=== PATIENT | male | born 1985 | race American Indian/Alaskan Native ===

== ENCOUNTER 2016-12-25 17:56 | Emergency (ER) | payer OTHER ==
[2016-12-25 18:22] VITALS: O2SAT 99
--- NOTE | 2016-12-25 19:46 | C.PDOC ---
History Of Present Illness The patient presents today with complaints of bilateral axillary swelling which he noticed after switching his deodorant. Patient states the swelling has been worse over the past couple days and is associated with a low grade fever. He denies any chills and offers no additional medical complaints. Time Seen by Provider: 12/25/16 19:46 Chief Complaint (Nursing): Abnormal Skin Integrity History Per: Patient History/Exam Limitations: no limitations Onset/Duration Of Symptoms: Days Current Symptoms Are (Timing): Still Present Quality Of Symptoms: Swollen Severity: Moderate Pain Scale Rating Of: 3 Recent travel outside of the [place]: No Additional History Per: Patient Past Medical History Reviewed: Historical Data, Nursing Documentation, Vital Signs Vital Signs: Last Vital Signs Temp 98 F 12/25/16 21:44 Pulse 65 12/25/16 21:44 Resp 18 12/25/16 21:44 BP 116/79 12/25/16 21:44 Pulse Ox 99 12/25/16 21:44 - Medical History PMH: No Chronic Diseases Surgical History: No Surg Hx Family History: States: No Known Family Hx - Social History Hx Alcohol Use: Yes Hx Substance Use: Yes - Immunization History Hx Tetanus Toxoid Vaccination: Yes Hx Influenza Vaccination: No Hx Pneumococcal Vaccination: No Review Of Systems Constitutional: Positive for: Fever. Negative for: Chills Musculoskeletal: Positive for: Other (swelling to bilateral axilla) Physical Exam - Physical Exam Appears: Non-toxic, No Acute Distress Skin: Warm, Dry Head: Normacephalic Eye(s): bilateral: Normal Inspection Neck: Supple Chest: Symmetrical Cardiovascular: Rhythm Regular Respiratory: No Decreased Breath Sounds, No Accessory Muscle Use Extremity: Other (3 2x4 cm areas of induration and tenderness, purulent drainage noted to right axilla; 2 small 1x3 and 1x2 cm areas of induration noted in left axilla.) Neurological/Psych: Oriented x3, Normal Speech, Normal Cognition ED Course And Treatment - Laboratory Results Result Diagrams: 12/25/16 20:18 12/25/16 20:18 O2 Sat by Pulse Oximetry: 99 (RA) Pulse Ox Interpretation: Normal Progress Note: Labs, IV Ancef and IV fluids ordered Reevaluation Time: 22:15 Reassessment Condition: Improved Medical Decision Making Medical Decision Making: Upon provider reevaluation patient is feeling better, is medically stable, and requires no further treatment in the ED at this time. Patient will be discharged home with Rx for keflex and bactrim . Counseling was provided and all questions were answered regarding diagnosis and need for follow up with the referred clinic. There is agreement to discharge plan. Return if symptoms persist or worsen. Disposition Counseled Patient/Family Regarding: Studies Performed, Diagnosis, Need For Followup, Rx Given - Disposition Referrals: [facility] at [facility] [Outside] [facility] [Outside] Disposition: HOME/ ROUTINE Disposition Time: 19:46 Condition: FAIR Prescriptions: Cephalexin [Keflex] 500 mg PO QID #28 capsule Naproxen [Naprosyn] 1 tab PO BID PRN #15 tab PRN Reason: Pain Sulfamethoxazole/Trimethoprim [Bactrim DS 800 mg-160 mg] 1 tab PO BID #14 tab Instructions: Cellulitis (DC), Abscess (GEN) Forms: [employer] (Faroese) - Clinical Impression Clinical Impression: Hidradenitis axillaris - Lucretiaibe Statement The provider has reviewed the documentation as recorded by the Leonidas Frakns Provider Attestation: All medical record entries made by the Leonidas were at my direction and personally dictated by me. I have reviewed the chart and agree that the record accurately reflects my personal performance of the history, physical exam, medical decision making, and the department course for this patient. I have also personally directed, reviewed, and agree with the discharge instructions and disposition.
[2016-12-25] MEDS ORDERED: Sodium Chloride 0.9% 1,000 ML IV ONE (19:53)
[2016-12-25] MEDS ORDERED: ceFAZolin IV 2 gm in Dextrose 2 GM/100 ML BAG IVPB STA (20:09)
[2016-12-25] MEDS ORDERED: Sodium Chloride 0.9% 1,000 ML ONE (20:21)
[2016-12-25] MEDS ORDERED: ceFAZolin 1 gm FROZEN Premix 2 GM/100 ML ML IVPB ONE (20:21)
[2016-12-25 20:22] LABS: BASO # 0.1 K/uL (0.0-0.2); BASO % 0.5 % (0.0-2.0); EOS # 0.1 K/uL (0.0-0.7); EOS % 0.7 % (0.0-4.0); HEMATOCRIT 39.2 % (35.0-51.0); LYMPH # 1.7 K/uL (1.0-4.3); LYMPH % 13.9 % (20.0-40.0); MEAN CELL VOLUME 87.7 fL (80.0-94.0); MEAN CORPUSCULAR HEMOGLOBIN 30.1 pg (27.0-31.0); MEAN CORPUSCULAR HGB CONC 34.4 g/dL (33.0-37.0); MEAN PLATELET VOLUME 8.2 fL (7.2-11.7); MONO # 1.3 K/uL (0.0-0.8); MONO % 10.1 % (0.0-10.0); RED CELL DISTRIBUTION WIDTH 13.3 % (11.5-14.5); WHITE BLOOD COUNT 12.4 K/uL (4.8-10.8)
[2016-12-25 20:29] LABS: CHLORIDE 105 mmol/L (98-107)
[2016-12-25 20:30] LABS: POTASSIUM 3.6 mmol/L (3.6-5.2); SODIUM 139 mmol/L (132-148)
[2016-12-25 20:33] LABS: BLOOD UREA NITROGEN 11 mg/dL (9-20); CALCIUM 7.9 mg/dl (8.6-10.4); CARBON DIOXIDE 22 mmol/L (22-30); GFR AFRICAN-AMERICAN > 60; GLUCOSE,RANDOM 96 mg/dL (75-110)
[2016-12-25 20:43] LABS: VENOUS BLOOD GAS BASE EXCESS -0.4 mmol/L (0.0-2.0); VENOUS BLOOD GAS PCO2 42 mmHg (40-60); VENOUS BLOOD PH 7.38 (7.32-7.43)
[2016-12-25 21:44] VITALS: RESP 18; TEMP 98
[2016-12-25 22:28] VITALS: BP 136/72; PULSE 61
== END 2016-12-25 22:27 | disposition home or self-care (01) ==
LOC: C.ER 17:56
DX: L73.2 Hidradenitis suppurativa (principal)
CPT/HCPCS: 80048; 82803; 85025; 87040; 96365; 96375; 99284; J0690; J1885; J7040

== ENCOUNTER 2017-05-12 18:17 | Emergency (ER) | payer OTHER ==
[2017-05-12 18:42] VITALS: RESP 20
[2017-05-12] MEDS ORDERED: Tmp-Smz 800 mg-160 mg DS Tab PO STA (18:53)
[2017-05-12] MEDS ORDERED: Lidocaine 1% Inj (20ml) INFIL STA (18:53)
--- NOTE | 2017-05-12 18:57 | C.PDOC ---
History Of Present Illness 31 year old male presents to the ER for evaluation of a painful mass to the left axilla which has been present for 1 week. Patient states he has been applying warm compresses without relief and taking Motrin. Patient denies having fever, drainage, and other complaints.Of note, patient states that he has a history of prior abscess in the past. Time Seen by Provider: 05/12/17 18:46 Chief Complaint (Nursing): Abnormal Skin Integrity History Per: Patient History/Exam Limitations: no limitations Onset/Duration Of Symptoms: Days Current Symptoms Are (Timing): Still Present Severity: Moderate Past Medical History Reviewed: Historical Data, Nursing Documentation, Vital Signs Vital Signs: Last Vital Signs Temp 98.9 F 05/12/17 19:50 Pulse 89 05/12/17 19:50 Resp 20 05/12/17 19:50 BP 110/70 05/12/17 19:50 Pulse Ox 99 05/12/17 21:16 - Medical History PMH: No Chronic Diseases Other Surgeries: ortho Family History: States: No Known Family Hx - Social History Hx Alcohol Use: Yes Hx Substance Use: Yes - Immunization History Hx Tetanus Toxoid Vaccination: No Hx Influenza Vaccination: No Hx Pneumococcal Vaccination: No Review Of Systems Except As Marked, All Systems Reviewed And Found Negative. Constitutional: Negative for: Fever, Chills Skin: Positive for: Other (painful mass to left axilla) Physical Exam - Physical Exam Appears: Non-toxic, No Acute Distress Skin: Normal Color, Warm, Other (2x2cm fluctuant, tender mass to left axilla) Head: Atraumatic, Normacephalic Eye(s): bilateral: Normal Inspection Nose: Normal Oral Mucosa: Moist Neck: Supple Chest: Symmetrical Extremity: Normal ROM, Deformity (left hand deformity) Neurological/Psych: Oriented x3, Normal Speech, Normal Motor, Normal Sensation Gait: Steady ED Course And Treatment O2 Sat by Pulse Oximetry: 99 (RA) Pulse Ox Interpretation: Normal - Incision & Drainage Of Abscess Anesthesia: Lidocaine 1% Prep Used: Betadine Procedure: Incised W/Scalpel Blade#: (11), Drained Pus, Irrigated Cavity W/ Saline, Probed To Break Up Loculations, Cultures Obtained And Sent To Lab Medical Decision Making Medical Decision Making: I&D was performed on the left axilla. Patient tolerated well. Patient discharged with Bactrim and told to follow up with clinic for wound check. Disposition Counseled Patient/Family Regarding: Diagnosis, Need For Followup, Rx Given - Disposition Referrals: [facility] [Outside] Disposition: HOME/ ROUTINE Disposition Time: 19:11 Condition: STABLE Additional Instructions: Your axillary abscess has been drained. Change dressing 1-2 times daily. You may still notice blood or pus on dressings. Take antibiotics twice a day and pain medicine as needed. Follow up in clinic for wound checks. Return to the emergency department at any time if symptoms persist or worsen. 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 - Scribe Statement The provider has reviewed the documentation as recorded by the Leonidas Chen Provider Attestation All medical record entries made by the Leonidas were at my direction and personally dictated by me. I have reviewed the chart and agree that the record accurately reflects my personal performance of the history, physical exam, medical decision making, and the department course for this patient. I have also personally directed, reviewed, and agree with the discharge instructions and disposition.
[2017-05-12 19:51] VITALS: BP 110/70; PULSE 89; TEMP 98.9
[2017-05-12 20:22] VITALS: O2SAT 99
== END 2017-05-12 19:50 | disposition home or self-care (01) ==
LOC: C.ER 18:17
DX: L02.412 Cutaneous abscess of left axilla (principal)